=== PATIENT | female | born 1935 | race Caucasian/White ===

== ENCOUNTER 2017-08-16 10:18 | Observation (INO) | payer MEDICARE, OTHER ==
--- NOTE | 2017-08-16 10:33 | CPEKG ---
Heart Rate: 61 RR Interval: 984 P-R Interval: 192 QRSD Interval: 80 QT Interval: 400 QTC Interval: 403 P [place]: 32 QRS [place]: 1 T Wave [place]: 26 EKG Severity - NORMAL ECG - EKG Impression: SINUS RHYTHM Electronically Signed By: Dayne Parrish 16-Aug-2017 14:25:21
--- NOTE | 2017-08-16 10:38 | EDPHY ---
H & P Time Seen by Provider: 08/16/17 10:32 HPI/ROS: Chief complaint. Chest pain HPI. 81-year-old female presents emergency department with chest pain that is off and on since last night. She describes as left anterior pressure. No radiation. No shortness of breath. No change with breathing, exertion, position. It does increase some with stress. When she has the chest discomfort last 10-15 minutes and seems to be better with sitting down and it resolves. She has had similar symptoms previously described this costochondritis. However she tells me this feels different than the previous costochondritis. She has had no recent fever cough or unusual leg pain or swelling. She took 81 mg of aspirin last night. ROS Constitutional. no fever/chills, no weakness Eyes. no problems with vision ENT. no sore throat, no nasal drainage Cardiovascular. Chest pressure Respiratory. no shortness of breath, no cough Abdominal. no abdominal pain, no nausea/vomiting, no diarrhea . no problems urinating MS. no calf pain/swelling, no neck/back pain, no joint pain Skin. no rash Lymph. no swollen glands Neuro. no headache, no dizziness, no difficulty walking or with speech Past Medical/Surgical History: TMJ, bipolar, central tremors, dyslipidemia No significant family history for coronary artery disease Social History: , nonsmoker, no alcohol Smoking Status: Former smoker Physical Exam: General Appearance: Alert well-developed female mild distress vital signs are stable Eyes: Pupils equal and round no pallor or injection. ENT, Mouth: Mucous membranes are moist. Respiratory: There are no retractions, lungs are clear to auscultation. Cardiovascular: Regular rate and rhythm. Gastrointestinal: Abdomen is soft and nontender, no masses, bowel sounds normal. Neurological: Awake and alert, sensory and motor exams grossly normal. Skin: Warm and dry, no rashes. Musculoskeletal: Neck is supple nontender. Extremities symmetrical, full range of motion. Psychiatric: Patient is oriented X 3, there is no agitation. Constitutional: Initial Vital Signs Temperature (C) 36.5 C 08/16/17 10:19 Heart Rate 73 08/16/17 10:19 Respiratory Rate 18 08/16/17 10:19 Blood Pressure 140/84 H 08/16/17 10:19 O2 Sat (%) 96 08/16/17 10:19 O2 Delivery Mode Room Air Allergies/Adverse Reactions: No Known Allergies Allergy (Verified 08/16/17 10:19) Home Medications: Medication Instructions Recorded GABAPENTIN 08/14/13 TOPIRAMATE 08/14/13 Aspirin EC [Aspirin EC 81 mg (*)] 81 mg PO DAILY 08/16/17 Propranolol HCl [Inderal 40mg (*)] 40 mg PO 08/16/17 Medical Decision Making - Diagnostics EKG Interpretation: EKG interpreted by me shows normal sinus rhythm normal interval and axis. QRS is normal there is no significant ST elevation or depression. No arrhythmia. The rate is 61. Imaging Results: Imaging Impressions Chest X-Ray 08/16/17 10:40 Impression: 1. Mild bronchitis. 2. No focal pneumonia. 3. No pleural effusion or pneumothorax. Chest x-ray interpreted by me shows no evidence of pneumonia Procedures: IV normal saline, aspirin, monitor ED Course/Re-evaluation: On re-evaluation patient remained stable. Patient and I discussed laboratory and imaging studies. We discussed treatment plan including recommendation for admission. She expresses understanding and agreement Patient has [employer] and when I contacted the [facility] they were fine with keeping the patient here. I consulted discussed the case with Dr. Soto, hospitalist, who agrees to the admission Differential Diagnosis: I have considered acute coronary syndrome, pulmonary embolus, pneumonia, congestive heart failure. Patient is having 10 or 15 min episodes of chest pressure relieved by rest though no precipitating factors. - Data Points Laboratory Results: Laboratory Results 08/16/17 10:34 08/16/17 10:34 08/16/17 08/16/17 08/16/17 11:18 10:34 10:34 WBC 11.79 10^3/uL H 10^3/uL (3.80-9.50) RBC 4.87 10^6/uL 10^6/uL (4.18-5.33) Hgb 15.0 g/dL g/dL (12.6-16.3) Hct 46.2 % % (38.0-47.0) MCV 94.9 fL fL (81.5-99.8) MCH 30.8 pg pg (27.9-34.1) MCHC 32.5 g/dL g/dL (32.4-36.7) RDW 14.3 % % (11.5-15.2) Plt Count 220 10^3/uL 10^3/uL (150-400) MPV 11.3 fL fL (8.7-11.7) Neut % (Auto) 48.0 % % (39.3-74.2) Lymph % (Auto) 37.1 % % (15.0-45.0) Pickett % (Auto) 10.4 % % (4.5-13.0) Eos % (Auto) 2.7 % % (0.6-7.6) Baso % (Auto) 1.3 % % (0.3-1.7) Nucleat RBC Rel Count 0.0 % % (0.0-0.2) Absolute Neuts (auto) 5.66 10^3/uL 10^3/uL (1.70-6.50) Absolute Lymphs (auto) 4.37 10^3/uL H 10^3/uL (1.00-3.00) Absolute Monos (auto) 1.23 10^3/uL H 10^3/uL (0.30-0.80) Absolute Eos (auto) 0.32 10^3/uL 10^3/uL (0.03-0.40) Absolute Basos (auto) 0.15 10^3/uL H 10^3/uL (0.02-0.10) Absolute Nucleated RBC 0.00 10^3/uL 10^3/uL (0-0.01) Immature Gran % 0.5 % % (0.0-1.1) Immature Gran # 0.06 10^3/uL 10^3/uL (0.00-0.10) D-Dimer 0.41 ug/mLFEU ug/mLFEU (0.00-0.50) Sodium 149 mEq/L H mEq/L (135-145) Potassium 3.9 mEq/L mEq/L (3.5-5.2) Chloride 115 mEq/L H mEq/L (97-110) Carbon Dioxide 23 mEq/l mEq/l (22-31) Anion Gap 11 mEq/L mEq/L (8-16) BUN 21 mg/dL mg/dL (7-23) Creatinine 1.1 mg/dL H mg/dL (0.6-1.0) Estimated GFR 48 Glucose 81 mg/dL mg/dL (70-100) Calcium 9.2 mg/dL mg/dL (8.5-10.4) Troponin I < 0.012 ng/mL ng/mL (0.000-0.034) NT-Pro-B Natriuret Pep 81 pg/mL pg/mL (0-450) Medications Given: Discontinued Medications Aspirin (Aspirin) 324 mg PO EDNOW ONE Stop: 08/16/17 10:41 Last Admin: 08/16/17 10:48 Dose: 324 mg Departure - Departure Disposition: [facility] Inpatient Acute Clinical Impression: Chest pain Qualifiers: Chest pain type: unspecified Qualified Code(s): R07.9 - Chest pain, unspecified Condition: Good Referrals: DEBBI,UNKNOWN [Other] - As per Instructions
[2017-08-16] MEDS ORDERED: ASPIRIN 81 MG CHEWABLE TAB PO ONE (10:40)
[2017-08-16 10:44] LABS: PLATELET COUNT 220 10^3/uL (150-400)
[2017-08-16] MEDS ORDERED: ONDANSETRON 4 MG/2 ML VIAL IVP PRN (13:32)
[2017-08-16] MEDS ORDERED: ACETAMINOPHEN 325 MG TAB PO PRN (13:32)
[2017-08-16] MEDS ORDERED: ONDANSETRON DISINTEGRATING 4 MG TAB PO PRN (13:32)
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
[2017-08-16] MEDS ORDERED: GABAPENTIN 400 MG CAP PO SCH (21:00)
[2017-08-16] MEDS ORDERED: PROPRANOLOL HCL 40 MG TAB PO SCH (21:00)
[2017-08-16] MEDS ORDERED: ASPIRIN EC 81 MG TAB PO SCH (21:00)
[2017-08-16] MEDS ORDERED: TOPIRAMATE 100 MG TAB PO SCH (21:00)
[2017-08-17 07:21] VITALS: BP 94/51
[2017-08-17] MEDS ORDERED: ENOXAPARIN 30 MG/0.3 ML SYR SC SCH (09:00)
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
== END 2017-08-17 13:00 | disposition home or self-care (01) ==
LOC: INTOOBSV 13:13 → F2W 13:49
PROVIDERS: ADMIT Internal Medicine; ATTEND Internal Medicine
DX: R07.9 Chest pain, unspecified (principal); R00.1 Bradycardia, unspecified; G25.0 Essential tremor; E78.5 Hyperlipidemia, unspecified; F31.81 Bipolar II disorder; Z87.891 Personal history of nicotine dependence
CPT/HCPCS: 71046; 93005; G0378; J1650